=== PATIENT | male | born 1965 | race Caucasian/White ===

== ENCOUNTER 2020-09-16 13:42 | Inpatient (IN) ==
--- NOTE | 2020-09-16 14:15 | Emergency Department Note ---
Impression & Plan COVID-19, Multifocal pneumonia ED Provider Note NAME: ALVARO DANIELLE AGE: 54 SEX: M : 1965 ARRIVES VIA: Walk-In INFORMANT: Patient, ED PROVIDER(S): Mehran Nolasco MD Chief Complaint: Low oxygen saturation HPI: Patient did present with concern for lower oxygen saturation. The patient states that he first began having symptoms of fatigue shortness of breath on Monday as the patient was out hunting. The patient states typically he walks and although overweight he states he usually is fairly physically fit but this was the worst that he had felt in some time. The patient denies any prior history of DVT or PE. The patient does have a prior history of breaking his right lower extremity at a prior date does have some chronic right greater than left lower extremity swelling. Patient denies any fevers or chills. The patient states that he has progressively gotten better over the last several day s but his daughter who is a physician's family services assistant at [employer] I checked his ambulatory pulse ox which was noted to be in the mid to low 80s. Given this he had called his primary care physician through [facility] as he does see Dr. Lennon and was prescribed dexamethasone in his throat. The patient was subsequently told to present to the emergency department given his hypoxia. Patient denies any chest pains or shortness of breath at rest. Patient denies any nausea or vomiting. Patient states his appetite has been okay. ROS: See HPI for pertinent positives and negatives. A total of 10 systems were reviewed and otherwise negative. Past medical history: See below Surgical history: See below Social history: See below Physical Exam: GENERAL: Wearing a mask. NAD, non-toxic. EYE EXAM: Normal conjunctiva. PERRL, no anisocoria and EOM's grossly intact w/o pain. NECK: Supple, no nuchal rigidity, no adenopathy, non-tender. No signs of meningismus. LUNGS: Clear to auscultation. Normal chest wall mechanics. HEART: NSR, no MRG. ABDOMEN: Abdomen soft, non-tender, normo-active bowel sounds, no masses, no rebound or guarding. BACK: No CVA TTP. SKIN: No rashes and no bruising. UPPER EXTREMITIES: Upper extremities are grossly normal. LOWER EXTREMITIES: Right greater than left lower extremity swelling but nonpitting, no erythema or calf pain. NEURO EXAM: A&O x3, cranial nerves II-XII grossly intact, normal speech, moves all 4 extremities on command w/o issue. Differential diagnoses: Reactive airway disease, pneumonia, pneumothorax, COPD, CHF, infections, cardiac ischemia, pulmonary embolism, musculoskeletal, gastrointestinal, as well as other pathologies. Course: Patient was seen and evaluated the bedside. Full history physical exam was performed. EKG: Indication: Hypoxia Sinus rhythm with first-degree AV block with prolonged NE. Normal axis, T wave inversion inferiorly. No significant change from prior completed July 17, 2020. Imaging Studies: Radiology results as stated below per my review in the radiologist's interpretation: SINGLE VIEW CHEST CLINICAL HISTORY: Dyspnea. FINDINGS: An AP, portable, upright chest radiograph is obtained. No prior studies are available for comparison at the time of dictation. The examination is degraded by portable technique and apical lordotic positioning. The cardiomediastinal silhouette is unremarkable. There is multifocal bilateral airspace consolidation. No large pleural effusion or pneumothorax is seen. The bony thorax is grossly intact. IMPRESSION: Multifocal airspace consolidation is typical for an infect ious/inflammatory pneumonitis. Clinical correlation will be required. Radiographic follow-up to resolution is recommended. ACT 112: Negative or not required by law. Electronically signed by: Diaz Ahn M.D. 09/16/2020 3:41 PM Dictated: 09/16/201539Transcribed: 09/16/201539 Cardiac monitoring: An order was placed for continuous cardiac monitoring. The monitor shows a rate of 69 with sinus rhythm. MDM: Patient did present with concern for exertional hypoxia. Patient's blood work shows a normal white counts but with mild anemia. Patient's kidney function is fairly unremarkable. Glucose borderline elevated at 128 with very mild hypokalemia 3.3. Troponin is not detectable. BNP is not elevated. Urinalysis negative for blood or infection. Flu negative but coronavirus positive. I did speak with the on-call hospitalist Dr. Mann and discussed that the patient was not having at rest symptoms and the patient was not hypoxic at rest but given the patient's positive Covid status exertional hypoxia and chest x-ray consistent with a multifocal pneumonia believe the patient would benefit from inpatient observation and treatment. Dexamethasone was ordered and the patient was admitted to the medicine service. 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 - [employer] How many Children do You have: 3 Feels Safe at Home: Yes Allergies Allergies Allergy/AdvReac Type Severity Reaction Status Date / Time No Known Allergies Allergy Unverified 09/16/20 16:00 Home Meds Home Medications Medication Instructions Recorded Confirmed amlodipine 5 mg PO DAILY 09/16/20 09/16/20 aspirin [Aspir-Low] 81 mg PO DAILY 09/16/20 09/16/20 atorvastatin 80 mg PO DAILY 09/16/20 09/16/20 azithromycin 250 mg PO DAILY 09/16/20 09/16/20 carvedilol [Coreg] 18.75 mg PO BID 09/16/20 09/16/20 dexamethasone 6 mg PO UD 09/16/20 09/16/20 glipizide 10 mg PO DAILY 09/16/20 09/16/20 hydrochlorothiazide 25 mg PO DAILY 09/16/20 09/16/20 lisinopril 40 mg PO DAILY 09/16/20 09/16/20 metformin 1,000 mg PO DAILY 09/16/20 09/16/20 omega-3 fatty acids [[place] 3 Fish 1,000 mg PO BID 09/16/20 09/16/20 Oil] sildenafil 50 mg PO DAILY PRN 09/16/20 09/16/20 Results & Data (ED) Vital Signs Vital Signs - 24 hr 09/16/20 13:46 09/16/20 14:39 09/16/20 15:02 Temperature 37 C Temperature Source Oral Pulse Rate 104 H 72 Pulse Rate [Recovery] Pulse Rate from SpO2 Sensor Respiratory Rate 18 20 Respiratory Rate [Recovery] Respiratory Effort / Characteristics Non-Labored Spontaneous Respiratory Depth Normal Respiratory Pattern Regular Blood Pressure 138/88 Blood Pressure Mean 104 Pulse Oximetry 93 94 94 Pulse Oximetry [Recovery] Oxygen Delivery Method Room Air Room Air Room Air Sepsis Recent Fever Within 48 Hours No Sepsis New/Unexplained Change in Mental Status No Sepsis Action Taken by Nursing No Action Required 09/16/20 15:18 09/16/20 15:54 09/16/20 17:00 Temperature Temperature Source Pulse Rate 64 65 Pulse Rate [Recovery] 64 Pulse Rate from SpO2 Sensor 66 Respiratory Rate 24 20 Respiratory Rate [Recovery] 22 Respiratory Effort / Characteristics Respiratory Depth Respiratory Pattern Blood Pressure 111/74 118/79 Blood Pressure Mean 86 87 Pulse Oximetry 92 93 Pulse Oximetry [Recovery] 87 L Oxygen Delivery Method Room Air Room Air Sepsis Recent Fever Within 48 Hours Sepsis New/Unexplained Change in Mental Status Sepsis Action Taken by Nursing 09/16/20 17:12 09/16/20 17:30 09/16/20 17:31 Temperature Temperature Source Pulse Rate 64 69 Pulse Rate [Recovery] Pulse Rate from SpO2 Sensor 64 66 69 Respiratory Rate 21 23 14 Respiratory Rate [Recovery] Respiratory Effort / Characteristics Respiratory Depth Respiratory Pattern Blood Pressure 124/74 Blood Pressure Mean 91 Pulse Oximetry 93 94 93 Pulse Oximetry [Recovery] Oxygen Delivery Method Sepsis Recent Fever Within 48 Hours Sepsis New/Unexplained Change in Mental Status Sepsis Action Taken by Nursing 09/16/20 18:00 09/16/20 18:01 09/16/20 18:30 Temperature Temperature Source Pulse Rate Pulse Rate [Recovery] Pulse Rate from SpO2 Sensor 67 67 68 Respiratory Rate 22 19 16 Respiratory Rate [Recovery] Respiratory Effort / Characteristics Respiratory Depth Respiratory Pattern Blood Pressure 108/69 123/78 Blood Pressure Mean 77 86 Pulse Oximetry 93 90 92 Pulse Oximetry [Recovery] Oxygen Delivery Method Sepsis Recent Fever Within 48 Hours Sepsis New/Unexplained Change in Mental Status Sepsis Action Taken by Nursing 09/16/20 18:31 Temperature Temperature Source Pulse Rate Pulse Rate [Recovery] Pulse Rate from SpO2 Sensor 69 Respiratory Rate 16 Respiratory Rate [Recovery] Respiratory Effort / Characteristics Respiratory Depth Respiratory Pattern Blood Pressure Blood Pressure Mean Pulse Oximetry 93 Pulse Oximetry [Recovery] Oxygen Delivery Method Sepsis Recent Fever Within 48 Hours Sepsis New/Unexplained Change in Mental Status Sepsis Action Taken by Long Term Medications Current Medication List: was personally reviewed by me Laboratory Data Attestation: I reviewed the patient's lab results. Result diagrams: 09/16/20 15:13 09/16/20 15:13 Lab Results 09/16/20 09/16/20 09/16/20 Range/Units 15:04 15:13 15:13 WBC 10.29 (4.8-10.8) K/uL RBC 4.64 L (4.7-6.1) M/uL Hgb 13.4 L (14.0-18.0) g/dL Hct 40.1 L (42-52) % MCV 86.4 (80-100) fL MCH 28.9 (25-34) pg MCHC 33.4 (32-36) g/dL RDW Std Deviation 43.8 (36.4-46.3) fL RDW Coeff of Arun 13.9 (11.5-14.5) % Plt Count 271 (130-400) K/uL MPV 9.7 (7.4-10.4) fL Immature Gran % (Auto) 0.3 % Neut % (Auto) 65.4 % Lymph % (Auto) 18.4 % [place] % (Auto) 8.8 % Eos % (Auto) 6.9 % Baso % (Auto) 0.2 % Neut # (Auto) 6.73 H (1.4-6.5) K/uL Lymph # (Auto) 1.89 (1.2-3.4) K/uL [place]le # (Auto) 0.91 H (0.11-0.59) K/uL Eos # (Auto) 0.71 H (0-0.5) K/uL Baso # (Auto) 0.02 (0-0.2) K/uL Immature Gran # (Auto) 0.03 H (0.00-0.02) K/uL PT (9.0-12.0) Seconds INR (0.9-1.1) APTT (21.0-31.0) Seconds PTT Ratio Sodium 134 L (136-145) mmol/L Potassium 3.3 L (3.5-5.1) mmol/L Chloride 101 (98-107) mmol/L Carbon Dioxide 24 (21-32) mmol/L Anion Gap 9.0 (3-11) BUN 23 H (7-18) mg/dl Creatinine 1.14 (0.6-1.4) mg/dl Est Cr Clr Drug Dosing 104.3 ml/min Est GFR ( Amer) 82.9 Est GFR (Non-Af Amer) 71.5 BUN/Creatinine Ratio 19.7 (10-20) Glucose 128 H (70-99) mg/dl Calcium 8.7 (8.5-10.1) mg/dl Magnesium 2.0 (1.8-2.4) mg/dl Total Bilirubin 0.6 (0.2-1) mg/dl AST 18 (15-37) U/L ALT 28 (12-78) U/L Alkaline Phosphatase 88 (45-117) U/L Total Creatine Kinase 142 (39-308) U/L Troponin I < 0.015 (0-0.045) ng/ml NT-Pro-B Natriuret Pep 60 (0-900) pg/ml Total Protein 7.0 (6.4-8.2) gm/dl Albumin 3.0 L (3.4-5.0) gm/dl Globulin 4.0 (2.5-4.0) gm/dl Albumin/Globulin Ratio 0.7 L (0.9-2) Urine Color Urine Appearance (Clear) Urine pH (4.5-7.5) Ur Specific [place] (1.000-1.030) Urine Protein (Negative) Urine Glucose (UA) (Negative) Urine Ketones (Negative) Urine Blood (Negative) Urine Nitrite (Negative) Urine Bilirubin (Negative) Urine Urobilinogen (Negative) Ur Leukocyte Esterase (Negative) COVID-19 Eval Order Influ A Molecular Assay Negative (Negative) Influ B Molecular Assay Negative (Negative) SARS-CoV-2, RNA, NAAT (NEGATIVE) 09/16/20 09/16/20 09/16/20 Range/Units 15:13 15:15 16:28 WBC (4.8-10.8) K/uL RBC (4.7-6.1) M/uL Hgb (14.0-18.0) g/dL Hct (42-52) % MCV (80-100) fL MCH (25-34) pg MCHC (32-36) g/dL RDW Std Deviation (36.4-46.3) fL RDW Coeff of Arun (11.5-14.5) % Plt Count (130-400) K/uL MPV (7.4-10.4) fL Immature Gran % (Auto) % Neut % (Auto) % Lymph % (Auto) % [place]ead[place] % (Auto) % Eos % (Auto) % Baso % (Auto) % Neut # (Auto) (1.4-6.5) K/uL Lymph # (Auto) (1.2-3.4) K/uL [place] # (Auto) (0.11-0.59) K/uL Eos # (Auto) (0-0.5) K/uL Baso # (Auto) (0-0.2) K/uL Immature Gran # (Auto) (0.00-0.02) K/uL PT 11.4 (9.0-12.0) Seconds INR 1.1 (0.9-1.1) APTT 26.8 (21.0-31.0) Seconds PTT Ratio 1.0 Sodium (136-145) mmol/L Potassium (3.5-5.1) mmol/L Chloride (98-107) mmol/L Carbon Dioxide (21-32) mmol/L Anion Gap (3-11) BUN (7-18) mg/dl Creatinine (0.6-1.4) mg/dl Est Cr Clr Drug Dosing ml/min Est GFR ( Amer) Est GFR (Non-Af Amer) BUN/Creatinine Ratio (10-20) Glucose (70-99) mg/dl Calcium (8.5-10.1) mg/dl Magnesium (1.8-2.4) mg/dl Total Bilirubin (0.2-1) mg/dl AST (15-37) U/L ALT (12-78) U/L Alkaline Phosphatase (45-117) U/L Total Creatine Kinase (39-308) U/L Troponin I (0-0.045) ng/ml NT-Pro-B Natriuret Pep (0-900) pg/ml Total Protein (6.4-8.2) gm/dl Albumin (3.4-5.0) gm/dl Globulin (2.5-4.0) gm/dl Albumin/Globulin Ratio (0.9-2) Urine Color Yellow Urine Appearance Clear (Clear) Urine pH 5.0 (4.5-7.5) Ur Specific [place] 1.020 (1.000-1.030) Urine Protein Negative (Negative) Urine Glucose (UA) Negative (Negative) Urine Ketones Negative (Negative) Urine Blood Negative (Negative) Urine Nitrite Negative (Negative) Urine Bilirubin Negative (Negative) Urine Urobilinogen Negative (Negative) Ur Leukocyte Esterase Negative (Negative) COVID-19 [facility] A Molecular Assay (Negative) Influ B Molecular Assay (Negative) SARS-CoV-2, RNA, NAAT (NEGATIVE) 09/16/20 Range/Units 16:28 WBC (4.8-10.8) K/uL RBC (4.7-6.1) M/uL Hgb (14.0-18.0) g/dL Hct (42-52) % MCV (80-100) fL MCH (25-34) pg MCHC (32-36) g/dL RDW Std Deviation (36.4-46.3) fL RDW Coeff of Arun (11.5-14.5) % Plt Count (130-400) K/uL MPV (7.4-10.4) fL Immature Gran % (Auto) % Neut % (Auto) % Lymph % (Auto) % [place] % (Auto) % Eos % (Auto) % Baso % (Auto) % Neut # (Auto) (1.4-6.5) K/uL Lymph # (Auto) (1.2-3.4) K/uL [place] # (Auto) (0.11-0.59) K/uL Eos # (Auto) (0-0.5) K/uL Baso # (Auto) (0-0.2) K/uL Immature Gran # (Auto) (0.00-0.02) K/uL PT (9.0-12.0) Seconds INR (0.9-1.1) APTT (21.0-31.0) Seconds PTT Ratio Sodium (136-145) mmol/L Potassium (3.5-5.1) mmol/L Chloride (98-107) mmol/L Carbon Dioxide (21-32) mmol/L Anion Gap (3-11) BUN (7-18) mg/dl Creatinine (0.6-1.4) mg/dl Est Cr Clr Drug Dosing ml/min Est GFR ( Amer) Est GFR (Non-Af Amer) BUN/Creatinine Ratio (10-20) Glucose (70-99) mg/dl Calcium (8.5-10.1) mg/dl Magnesium (1.8-2.4) mg/dl Total Bilirubin (0.2-1) mg/dl AST (15-37) U/L ALT (12-78) U/L Alkaline Phosphatase (45-117) U/L Total Creatine Kinase (39-308) U/L Troponin I (0-0.045) ng/ml NT-Pro-B Natriuret Pep (0-900) pg/ml Total Protein (6.4-8.2) gm/dl Albumin (3.4-5.0) gm/dl Globulin (2.5-4.0) gm/dl Albumin/Globulin Ratio (0.9-2) Urine Color Urine Appearance (Clear) Urine pH (4.5-7.5) Ur Specific [place] (1.000-1.030) Urine Protein (Negative) Urine Glucose (UA) (Negative) Urine Ketones (Negative) Urine Blood (Negative) Urine Nitrite (Negative) Urine Bilirubin (Negative) Urine Urobilinogen (Negative) Ur Leukocyte Esterase (Negative) COVID-19 Eval Order Influ A Molecular Assay (Negative) Influ B Molecular Assay (Negative) SARS-CoV-2, RNA, NAAT POSITIVE A* (NEGATIVE) Administered Medications Discontinued Medications Dexamethasone (Dexamethasone Sod Inj 10 Mg/Ml Vial) 6 mg IV NOW ONE Stop: 09/16/20 16:48 Last Admin: 09/16/20 17:06 Dose: 6 mg Documented by: [id number] Sodium Chloride (Nss) 500 mls @ 999 mls/hr IV .Q31M LORIE Stop: 09/16/20 15:15 Last Infusion: 09/16/20 15:54 Dose: 0 mls/hr Documented by: [id number] Admin: 09/16/20 15:16 Dose: 999 mls/hr Documented by: [id number] Discharge Plan Visit Data Chief Complaint: Shortness of Breath/Dyspnea Stated Complaint: COVIDPENDING,SOB,COUGH,CHEST PAIN WITH DEEP BREATH ED Provider: Mehran Nolasco Discharge Problem: COVID-19, Multifocal pneumonia Discharge Instructions Interventions: ED Discharge Assessment Last Done: 09/16/20 18:49
[2020-09-16] MEDS ORDERED: SODIUM CHLORIDE 0.9% 500 ML IV SCH (14:45)
[2020-09-16 15:26] LABS: Basophils # (auto) 0.02 K/uL (0-0.2); Basophils % (auto) 0.2 %; Eosinophils # (auto) 0.71 K/uL (0-0.5); Eosinophils % (auto) 6.9 %; Hematocrit (blood only) 40.1 % (42-52); Hemoglobin 13.4 g/dL (14.0-18.0); Immature Granulocytes # (auto) 0.03 K/uL (0.00-0.02); Immature Granulocytes % (auto) 0.3 %; Lymphocytes # (auto) 1.89 K/uL (1.2-3.4); Lymphocytes % (auto) 18.4 %; Mean Corpuscular Hemoglobin 28.9 pg (25-34); Mean Corpuscular Hgb Conc 33.4 g/dL (32-36); Mean Corpuscular Volume 86.4 fL (80-100); Mean Platelet Volume 9.7 fL (7.4-10.4); Monocytes # (auto) 0.91 K/uL (0.11-0.59); Monocytes % (auto) 8.8 %; Neutrophils # (auto) 6.73 K/uL (1.4-6.5); Neutrophils % (auto) 65.4 %; Platelet Count 271 K/uL (130-400); RDW Coefficient of Variation 13.9 % (11.5-14.5); RDW Standard Deviation 43.8 fL (36.4-46.3); Red Blood Count 4.64 M/uL (4.7-6.1); White Blood Count 10.29 K/uL (4.8-10.8)
[2020-09-16 15:30] LABS: Appearance Urine Clear (Clear); Bilirubin Urine Negative (Negative); Blood Urine Negative (Negative); Color Urine Yellow; Glucose Urine UA Negative (Negative); Ketones Urine Negative (Negative); Leukocyte Esterase Urine Negative (Negative); Nitrite Urine Negative (Negative); Protein Urine Negative (Negative); Urobilinogen Urine Negative (Negative)
[2020-09-16 15:37] LABS: INR 1.1 (0.9-1.1); Partial Thromboplastin Time 26.8 Seconds (21.0-31.0); Prothrombin Time 11.4 Seconds (9.0-12.0)
--- NOTE | 2020-09-16 15:42 | XRay Report ---
SINGLE VIEW CHEST CLINICAL HISTORY: Dyspnea. FINDINGS: An AP, portable, upright chest radiograph is obtained. No prior studies are available for c omparison at the time of dictation. The examination is degraded by portable technique and apical lord otic positioning. The cardiomediastinal silhouette is unremarkable. There is multifocal bilateral air space consolidation. No large pleural effusion or pneumothorax is seen. The bony thorax is grossly in tact. IMPRESSION: Multifocal airspace consolidation is typical for an infectious/inflammatory pneumonitis. Clinical correlation will be required. Radiographic follow-up to resolution is recommended. ACT 112: Negative or not required by law. Electronically signed by: Diaz Ahn M.D. 09/16/2020 3:41 PM
[2020-09-16 15:45] LABS: Alanine Aminotransferase 28 U/L (12-78); Aspartate Aminotransferase 18 U/L (15-37); BUN Creatinine Ratio 19.7 (10-20); Blood Urea Nitrogen 23 mg/dl (7-18); Calcium 8.7 mg/dl (8.5-10.1); Carbon Dioxide 24 mmol/L (21-32); Chloride 101 mmol/L (98-107); Creatinine Clr Calc Pharmacy 104.3 ml/min; Est GFR (African American) 82.9; Est GFR (Non-African American) 71.5; Glucose 128 mg/dl (70-99); Potassium 3.3 mmol/L (3.5-5.1); Sodium 134 mmol/L (136-145)
[2020-09-16 15:50] LABS: Albumin Globulin Ratio 0.7 (0.9-2); Alkaline Phosphatase 88 U/L (45-117); Bilirubin,Total 0.6 mg/dl (0.2-1); NT Pro B Type Natriuretic Pept 60 pg/ml (0-900); Troponin I < 0.015 ng/ml (0-0.045)
[2020-09-16 16:24] LABS: Influenza A virus by PCR Negative (Negative); Influenza B virus by PCR Negative (Negative)
[2020-09-16] MEDS ORDERED: DEXAMETHASONE SOD INJ 10 MG/ML VIAL IV ONE (16:47)
--- NOTE | 2020-09-16 17:05 | History & Physical Report ---
Date of Service September 16, 2020 Assessment & Plan (1) Pneumonia due to COVID-19 virus: Patient overall doing much better than several days ago. He looks very well at time of admission. Good appetite as well. O2 sats at rest in the ER have been 90% or greater. During my bedside eval he was 94%. By report he dropped briefly into the upper 80s with ambulation. He has been started on decadron by the ER. Will continue such for a total of 10 days. If he has any worsening hypoxia or O2 requirement tonight would have very low threshold for remdesivir initiation as well as consenting him for plasma. He has multiple comorbidities which would put him at risk of illness progression and more severe disease. Check dimer and procal in am. (2) CAD (coronary artery disease): with prior [place]. no cardiology f/u in years - followed by PCP for this issue. cont asa, statin, beta goran. BPs low-normal - hold YOSEPH. (3) Essential (primary) hypertension: Cont all meds but hold YOSEPH and HCTZ as BPs are low-normal. (4) Diabetes type 2, controlled: place on lantus 10 units HS novolog correction & carb coverage hold oral meds (5) Hyperlipidemia: if CPK is normal continue statin ast/alt noted to be normal (6) Hypokalemia: replace repeat BMP am (7) Hyponatremia: 2nd HCTZ use give isotonic fluids overnight repeat BMP am (8) DVT prophylaxis: in light of higher DVT/PE risk with COVID-[address] lovenox 40mg BID updated extensively by phone History of Present Illness Chief Complaint: fatigue, shortness of breath, low O2 sat Primary Care Provider: Samy Kraft, 54yo male with CAD s/p [place], T2DM, HTN, and obesity who presents with fatigue, diarrhea, shortness of breath, and dry cough. Went hunting on Monday am with his children and symptoms started then. Fatigue and chest symptoms persisted all weekend and into the early part of this week. Daughter is an urgent care physician graduate assistant athletic trainer who checked his pulse ox at home and lowest O2 sats were 88% in room air with ambulation. Had COVID-19 testing on Monday, 09/12 but that test is still pending. However, his test in the ER today is positive for COVID. Son-in-law recently had COVID. Patient reports that yesterday he began to feel a little better and today the improvement has continued. In the ER his O2 sats at rest have been in the 92% range or higher. With ambulation in the room he dropped to about 87% briefly. Decadron IV was given. Allergies Allergy/AdvReac Type Severity Reaction Status Date / Time No Known Allergies Allergy Unverified 09/16/20 16:00 Home Medications Medication Instructions Recorded Confirmed Type amlodipine 5 mg PO DAILY 09/16/20 09/16/20 History aspirin [Aspir-Low] 81 mg PO DAILY 09/16/20 09/16/20 History atorvastatin 80 mg PO DAILY 09/16/20 09/16/20 History azithromycin 250 mg PO DAILY 09/16/20 09/16/20 History carvedilol [Coreg] 18.75 mg PO BID 09/16/20 09/16/20 History dexamethasone 6 mg PO UD 09/16/20 09/16/20 History glipizide 10 mg PO DAILY 09/16/20 09/16/20 History hydrochlorothiazide 25 mg PO DAILY 09/16/20 09/16/20 History lisinopril 40 mg PO DAILY 09/16/20 09/16/20 History metformin 1,000 mg PO DAILY 09/16/20 09/16/20 History omega-3 fatty acids [[place] 3 Fish 1,000 mg PO BID 09/16/20 09/16/20 History Oil] sildenafil 50 mg PO DAILY PRN 09/16/20 09/16/20 History Past Med/Surg History Medical History (Updated 09/16/20 @ 21:54 by Carlos Manuel Mann) CAD (coronary artery disease) Diabetes type 2, controlled Essential (primary) hypertension Hyperlipidemia Myocardial infarction 2007 - stents; placed at [facility] Surgical History H/O arthroscopy of knee b/l knees Family History Father , age 42 from the [place] Myocardial infarction Mother , age 76 Multiple system atrophy Sister Diabetes Social History Smoking Status: Never smoker Hx Alcohol Use: No Hx Substance Use: No Preferred Language: Danish Communication Ability: Effective Spooling Supervisor Required: No Beliefs That Will Affect Care: None marital status: Current Living Situation: Spouse current occupational status: employed 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 - [employer] How many Children do You have: 3 Other Information That Helps Us Care for You: No Feels Safe at Home: Yes Safety Concerns: Feels Safe At This Time Assistive Devices: Oxygen - at Night Review of Systems Constitutional: + fatigue and + weakness; no fever Eyes: no worsening vision Ear, Nose, Mouth, Throat: denies loss of taste or smell Respiratory: + cough and + dyspnea on exertion chest pressure sensation - very different than his chest pain he experienced with acute ME Cardiovascular: as per Subjective / HPI; no paroxysmal nocturnal dyspnea and no edema Gastrointestinal: + diarrhea/loose stools; no abdominal pain, no nausea and no vomiting Genitourinary: no dysuria Musculoskeletal: + muscle weakness Integumentary: no rash Neurologic: + generalized weakness Psychiatric: no depression Hematologic / Lymphatic: no easy bruising Physical Exam Constitutional: well developed and well nourished; no acute distress, not ill appearing and no altered mental status Eyes: PERRL ENMT: Mouth: no oropharynx abnormality and oral mucous membranes not dry Neck: trachea midline, no thyromegaly Respiratory: Auscultation: + rales (fine, bases b/l ) and + wheezes (hint of end-exp wheeze - scattered ) Cardiovascular: Rate/Rhythm: regular rate and regular rhythm Heart Sounds: normal S1 and normal S2; no murmur Vessels: posterior tibial pulses present and dorsalis pedis pulses present; no JVD Extremities: no edema Gastrointestinal (Abdomen): normal bowel sounds, soft, nontender, no hepatosplenomegaly Musculoskeletal: no cyanosis or clubbing, extremities motor strength 5/5 Skin: no rashes, warm and dry Neurologic: moves all extremities; no focal motor deficits Psychiatric: A+Ox3, euthymic affect Lymphatic: + cervical lymphadenopathy (shotty lymph nodes b/l ) Results & Data Results & Data ([facility]) Vital Signs (Past 12 Hours) Vital Signs Temp Pulse Pulse Resp Resp BP Pulse Ox 09/16/20 15:54 64 24 111/74 92 09/16/20 15:18 64 22 09/16/20 15:02 72 20 94 09/16/20 14:39 94 09/16/20 13:46 37 C 104 H 18 138/88 93 Pulse Ox 09/16/20 15:54 09/16/20 15:18 87 L 09/16/20 15:02 09/16/20 14:39 09/16/20 13:46 Laboratory Results Laboratory Results - last 24 hr 09/16/20 09/16/20 09/16/20 15:04 15:13 15:13 WBC 10.29 RBC 4.64 L Hgb 13.4 L Hct 40.1 L MCV 86.4 MCH 28.9 MCHC 33.4 RDW Std Deviation 43.8 RDW Coeff of Arun 13.9 Plt Count 271 MPV 9.7 Immature Gran % (Auto) 0.3 Neut % (Auto) 65.4 Lymph % (Auto) 18.4 [place] % (Auto) 8.8 Eos % (Auto) 6.9 Baso % (Auto) 0.2 Neut # (Auto) 6.73 H Lymph # (Auto) 1.89 [place] # (Auto) 0.91 H Eos # (Auto) 0.71 H Baso # (Auto) 0.02 Immature Gran # (Auto) 0.03 H PT INR APTT PTT Ratio Sodium 134 L Potassium 3.3 L Chloride 101 Carbon Dioxide 24 Anion Gap 9.0 BUN 23 H Creatinine 1.14 Est Cr Clr Drug Dosing 104.3 Est GFR ( Amer) 82.9 Est GFR (Non-Af Amer) 71.5 BUN/Creatinine Ratio 19.7 Glucose 128 H POC Glucose Calcium 8.7 Magnesium 2.0 Total Bilirubin 0.6 AST 18 ALT 28 Alkaline Phosphatase 88 Total Creatine Kinase 142 Troponin I < 0.015 NT-Pro-B Natriuret Pep 60 Total Protein 7.0 Albumin 3.0 L Globulin 4.0 Albumin/Globulin Ratio 0.7 L Urine Color Urine Appearance Urine pH Ur Specific [place] Urine Protein Urine Glucose (UA) Urine Ketones Urine Blood Urine Nitrite Urine Bilirubin Urine Urobilinogen Ur Leukocyte Esterase COVID-19 Eval Order Influ A Molecular Assay Negative Influ B Molecular Assay Negative SARS-CoV-2, RNA, NAAT 09/16/20 09/16/20 09/16/20 15:13 15:15 16:28 WBC RBC Hgb Hct MCV MCH MCHC RDW Std Deviation RDW Coeff of Arun Plt Count MPV Immature Gran % (Auto) Neut % (Auto) Lymph % (Auto) [place] % (Auto) Eos % (Auto) Baso % (Auto) Neut # (Auto) Lymph # (Auto) [place] # (Auto) Eos # (Auto) Baso # (Auto) Immature Gran # (Auto) PT 11.4 INR 1.1 APTT 26.8 PTT Ratio 1.0 Sodium Potassium Chloride Carbon Dioxide Anion Gap BUN Creatinine Est Cr Clr Drug Dosing Est GFR ( Amer) Est GFR (Non-Af Amer) BUN/Creatinine Ratio Glucose POC Glucose Calcium Magnesium Total Bilirubin AST ALT Alkaline Phosphatase Total Creatine Kinase Troponin I NT-Pro-B Natriuret Pep Total Protein Albumin Globulin Albumin/Globulin Ratio Urine Color Yellow Urine Appearance Clear Urine pH 5.0 Ur Specific [place] 1.020 Urine Protein Negative Urine Glucose (UA) Negative Urine Ketones Negative Urine Blood Negative Urine Nitrite Negative Urine Bilirubin Negative Urine Urobilinogen Negative Ur Leukocyte Esterase Negative COVID-19 Eval [facility] Influ A Molecular Assay Influ B Molecular Assay SARS-CoV-2, RNA, NAAT 09/16/20 09/16/20 16:28 20:22 WBC RBC Hgb Hct MCV MCH MCHC RDW Std Deviation RDW Coeff of Arun Plt Count MPV Immature Gran % (Auto) Neut % (Auto) Lymph % (Auto) [place] % (Auto) Eos % (Auto) Baso % (Auto) Neut # (Auto) Lymph # (Auto) [place] # (Auto) Eos # (Auto) Baso # (Auto) Immature Gran # (Auto) PT INR APTT PTT Ratio Sodium Potassium Chloride Carbon Dioxide Anion Gap BUN Creatinine Est Cr Clr Drug Dosing Est GFR ( Amer) Est GFR (Non-Af Amer) BUN/Creatinine Ratio Glucose POC Glucose 154 H Calcium Magnesium Total Bilirubin AST ALT Alkaline Phosphatase Total Creatine Kinase Troponin I NT-Pro-B Natriuret Pep Total Protein Albumin Globulin Albumin/Globulin Ratio Urine Color Urine Appearance Urine pH Ur Specific [place] Urine Protein Urine Glucose (UA) Urine Ketones Urine Blood Urine Nitrite Urine Bilirubin Urine Urobilinogen Ur Leukocyte Esterase COVID-19 Eval Order Influ A Molecular Assay Influ B Molecular Assay SARS-CoV-2, RNA, NAAT POSITIVE A* Code Status & VTE Plan Code Status full VTE Prophylaxis Plan VTE Prophylaxis will be ordered: Yes PG Care Time/CCT Total # of Minutes Spent Total Time Spent with Patient: Total time spent is greater than 50% in coordination of care (as documented) at patient's floor/unit and/or counseling patient: Coding Level of Care Code 86013 Initial Inpt Care Lvl 2 Diagnoses Pneumonia due to COVID-19 virus U07.1; J12.89 CAD (coronary artery disease) I25.10 Associated angina: without angina Coronary Disease-Associated Artery/Lesion type: [place] artery [place] vs. transplanted heart: [place] heart Essential (primary) hypertension I10 Diabetes type 2, controlled E11.9 Diabetes mellitus complication status: without complication Diabetes mellitus long term acute care registered nurse insulin use: without fci use Hyperlipidemia E78.2 Hyperlipidemia type: mixed hyperlipidemia Hypokalemia E87.6 Hyponatremia E87.1 DVT prophylaxis Z29.9 (1) CAD (coronary artery disease) Associated angina: without angina Coronary Disease-Associated Artery/Lesion type: [place] artery [place] vs. transplanted heart: [place] heart Qualified Code(s): I25.10 - Atherosclerotic heart disease of [place] coronary artery without angina pectoris (2) Hyperlipidemia Hyperlipidemia type: mixed hyperlipidemia Qualified Code(s): E78.2 - Mixed hyperlipidemia (3) Diabetes type 2, controlled Diabetes mellitus complication status: without complication Diabetes mellitus long term acute care registered nurse insulin use: without long term acute care registered nurse use Qualified Code(s): E11.9 - Type 2 diabetes mellitus without complications
--- NOTE | 2020-09-16 17:12 | Electrocardiogram Report ---
Test Reason : Blood Pressure : / mmHG Vent. Rate : 067 BPM Atrial Rate : 067 BPM P-R Int : 208 ms QRS Dur : 120 ms QT Int : 414 ms P-R-T Axes : 057 003 -19 degrees QTc Int : 437 ms Normal sinus rhythm Non-specific intra-ventricular conduction delay Borderline ECG When compared with ECG of 17-JUL-2020 13:32, No significant change was found Confirmed by Bryant Durán ([id number]) on 09/16/2020 5:11:43 PM Referred By: REFERRED SELF Confirmed By:Boom Durán
[2020-09-16 18:20] LABS: Creatine Kinase 142 U/L (39-308)
[2020-09-16] MEDS ORDERED: ONDANSETRON INJ 2 MG/ML 2 ML VIAL IV PRN (20:22)
[2020-09-16] MEDS ORDERED: guaiFENesin 600 MG TABCR PO PRN (20:22)
[2020-09-16] MEDS ORDERED: NITROGLYCERIN SL 0.4 MG/TAB TAB SL PRN (20:22)
[2020-09-16] MEDS ORDERED: ACETAMINOPHEN 325 MG TAB PO PRN (20:22)
[2020-09-16] MEDS ORDERED: GLUCAGON FOR INJ 1 MG VIAL IM PRN (21:00)
[2020-09-16] MEDS ORDERED: GLUCOSE 40% GEL 15 GM TUBE PO PRN (21:00)
[2020-09-16] MEDS ORDERED: CARBOHYDRATES FOR HYPOGLYCEMIA PO PRN (21:00)
[2020-09-16] MEDS ORDERED: DEXTROSE 50% 50 ML SYRINGE IV PRN (21:00)
[2020-09-16] MEDS ORDERED: GLUCOSE 10 TABS/TUBE PO PRN (21:00)
[2020-09-16] MEDS ORDERED: INSULIN GLARGINE SOLOSTAR 100 UNITS/ML 3 ML PEN SC SCH (22:00)
[2020-09-16] MEDS: NSS + 20MEQ KCL 20 MEQ/1,000 ML BAG IV SCH (22:12)
[2020-09-16] MEDS: carvediloL 6.25 MG TAB PO SCH (22:17)
[2020-09-16] MEDS: ENOXAPARIN INJ 40 MG/0.4 ML SYR SQ SCH (22:18)
[2020-09-16] MEDS: INSULIN ASPART 100 UNITS/ML 3 ML PEN SC SCH (22:34)
[2020-09-16] MEDS ORDERED: ATORVASTATIN 40 MG TAB PO ONE (23:00)
[2020-09-16] MEDS: POTASSIUM CHLORIDE CRTAB 20 MEQ TABCR PO SCH (23:39)
[2020-09-17] MEDS: ALBUTEROL HFA 8 GM INHALER INH SCH ×3 (00:43→09:21)
[2020-09-17] MEDS ORDERED: ATORVASTATIN 40 MG TAB PO SCH (08:00)
[2020-09-17] MEDS ORDERED: amLODIPine BESYLATE 5 MG TAB PO SCH (08:00)
[2020-09-17] MEDS ORDERED: ASPIRIN 81 MG ECTAB PO SCH (08:00)
[2020-09-17] MEDS: carvediloL 6.25 MG TAB PO SCH (08:36)
[2020-09-17] MEDS: ENOXAPARIN INJ 40 MG/0.4 ML SYR SQ SCH (08:37)
[2020-09-17] MEDS: POTASSIUM CHLORIDE CRTAB 20 MEQ TABCR PO SCH (08:38)
[2020-09-17] MEDS: NSS + 20MEQ KCL 20 MEQ/1,000 ML BAG IV SCH (08:39)
[2020-09-17] MEDS: INSULIN ASPART 100 UNITS/ML 3 ML PEN SC SCH ×2 (08:55→12:32)
[2020-09-17] MEDS ORDERED: dexAMETHasone 4 MG TAB PO SCH (09:00)
[2020-09-17 09:39] LABS: D Dimer 1490 ug/L FEU (0-500)
[2020-09-17 09:48] LABS: BUN Creatinine Ratio 18.8 (10-20); Calcium 8.2 mg/dl (8.5-10.1); Creatinine Clr Calc Pharmacy 109.5 ml/min; Est GFR (African American) 88.5; Est GFR (Non-African American) 76.3
[2020-09-17] MEDS ORDERED: ALBUTEROL HFA 8 GM INHALER INH PRN (10:49)
--- NOTE | 2020-09-17 18:32 | Discharge Summary ---
Date of Service September 17, 2020 Admission HPI Per Admitting Provider 54yo male with CAD s/p [place], T2DM, HTN, and obesity who presents with fatigue, diarrhea, shortness of breath, and dry cough. Went hunting on Monday am with his children and symptoms started then. Fatigue and chest symptoms persisted all weekend and into the early part of this week. Daughter is an urgent care physician expanded function dental assistant who checked his pulse ox at home and lowest O2 sats were 88% in room air with ambulation. Had COVID-19 testing on Monday, 09/12 but that test is still pending. However, his test in the ER today is positive for COVID. Son-in-law recently had COVID. Patient reports that yesterday he began to feel a little better and today the improvement has continued. In the ER his O2 sats at rest have been in the 92% range or higher. With ambulation in the room he dropped to about 87% briefly. Decadron IV was given. Principal Diagnosis Covid-19 pneumonia Discharge Exam Constitutional WD/WN, vitals as above Eyes EOM intact bilaterally; no conjunctival abnormality ENMT external ear and nose normal, oropharynx normal Neck trachea midline, no thyromegaly normal visual inspection Respiratory normal respiratory effort, lungs clear to auscultation no respiratory distress Cardiovascular RRR, no murmur, no edema Gastrointestinal (Abdomen) Inspection/Auscultation: abdomen normal to inspection; abdomen not distended Musculoskeletal no cyanosis or clubbing, extremities motor strength 5/5 Skin no rashes, warm and dry Neurologic moves all extremities and awake Psychiatric Orientation: alert, oriented to person and cooperative Discharge Data Allergies Allergy/AdvReac Type Severity Reaction Status Date / Time No Known Allergies Allergy Unverified 09/16/20 16:00 Consultations 09/16/20 16:27 ED Decision to Admit Stat Hospital Course (1) Pneumonia due to COVID-19 virus: Patient overall doing much better than several days ago. He looks very well at time of admission. Good appetite as well. O2 sats at rest in the ER have been 90% or greater. During my bedside eval he was 94%. By report he dropped briefly into the upper 80s with ambulation. He has been started on decadron by the ER. Will continue such for a total of 10 days. If he has any worsening hypoxia or O2 requirement tonight would have very low threshold for remdesivir initiation as well as consenting him for plasma. He has multiple comorbidities which would put him at risk of illness progression and more severe disease. - Discharged with the dexamethasone and azithromycin he already had. He passed a 2-step without needing oxygen. He will follow up with PCP in 1-2 weeks. Follow up CXR recommended in 4-6 weeks for resolution of his infiltrates. (2) Diabetes type 2, controlled: Placed on Lantus 10 units HS while inpatient. - Recommended to check blood sugars once or twice a day at home while on steroids. May need to double glipizide temporarily while on steroids. (3) CAD (coronary artery disease): with prior [place]. no cardiology f/u in years - followed by PCP for this issue. cont asa, statin, beta goran. (4) Essential (primary) hypertension: Cont all meds but hold YOSEPH and HCTZ as BPs are low-normal. (5) Hyperlipidemia: if CPK is normal continue statin ast/alt noted to be normal (6) DVT prophylaxis: In light of higher DVT/PE risk with COVID-19, will place on Lovenox 40mg BID Total Time Total Time Spent Total Time Spent (In Minutes): 35 Discharge Plan Discharge Items Patient Disposition: Home - Self-Care Reason For Visit: COVID 19 PNEUMONIA Discharge Diagnosis: Covid-19 pneumonia Activity: Resume your previous activity Non-emergency contact: Primary Care Provider Call non-emergency contact if: your symptoms worsen and your temperature is above 101 Follow-up/Referrals: Samy Kraft, [Primary Care Provider] - (Your PCP's office will calll you with an appt date and time. ) Diet: Regular Addtl Attending Provider Instructions: You were admitted with Covid-19 pneumonia. Fortunately, you are improving with the steroids, and we are sending you home. As we discussed, take your 7-day dosage of dexamethasone as prescribed as well as the azithromycin, both starting tomorrow. The biggest concern for me is that your blood sugar may elevated with the steroids. Please check your blood sugar at least once or twice a day. If your sugars start to run higher than the 200 range, please speak with your PCP about possibly doubling your glipizide (temporarily only). We would like you to get a follow-up chest x-ray in 4-6 weeks. This will tell us how your lungs are doing and hopefully show that all evidence of Covid has healed. Pending Studies at Discharge: No Stand-Alone Forms: My [facility], Smoking Cessation Medications and DC Order Prescriptions: Continued atorvastatin 80 mg tablet 80 mg PO DAILY RF: 0 carvedilol [Coreg] 12.5 mg tablet 18.75 mg PO BID RF: 0 sildenafil 50 mg Tablet 50 mg PO DAILY PRN (Reason: ..) RF: 0 azithromycin 250 mg tablet 250 mg PO DAILY RF: 0 glipizide 10 mg tablet extended release 24hr 10 mg PO DAILY RF: 0 dexamethasone 6 mg tablet 6 mg PO UD RF: 0 amlodipine 5 mg tablet 5 mg PO DAILY RF: 0 aspirin 81 mg Tablet,Delayed Release (Dr/Ec) 81 mg PO DAILY RF: 0 metformin 1,000 mg tablet 1,000 mg PO DAILY RF: 0 hydrochlorothiazide 25 mg tablet 25 mg PO DAILY RF: 0 lisinopril 40 mg tablet 40 mg PO DAILY RF: 0 omega-3 fatty acids Capsule 1,000 mg PO BID RF: 0 Discharge Orders: Discharge Order (Routine); Ordered 09/17/20 Ordered By: Erasmo Beltre Admission Data Admit Date/Time: 09/16/20 18:05 Attending Provider: Erasmo Beltre Admit Provider: Carlos Manuel Mann Primary Care Provider: Samy Kraft Other Providers: Erasmo Beltre Other Interventions: Discharge Summary Assessment (RN) Last Done: 09/17/20 14:35 Coding Level of Care Code D/C Day Management >30 mins Diagnoses Pneumonia due to COVID-19 virus U07.1; J12.89 Diabetes type 2, controlled E11.9 Diabetes mellitus manager terminal insulin use: without senior living use Diabetes mellitus complication status: without complication CAD (coronary artery disease) I25.10 Coronary Disease-Associated Artery/Lesion type: [place] artery [place] vs. transplanted heart: [place] heart Associated angina: without angina Essential (primary) hypertension I10 Hyperlipidemia E78.2 Hyperlipidemia type: mixed hyperlipidemia DVT prophylaxis Z29.9
== END 2020-09-17 15:13 | disposition home or self-care (01) | DRG 177 ==
LOC: ED 13:42 → SUATTDRO 18:05 → 2W 18:05